=== PATIENT | female | born 1950 | race Hispanic/Latino ===

== ENCOUNTER 2019-07-09 10:54 | Observation (INO) | payer OTHER ==
[~2019-07-09] VITALS: Ht 162.6 cm; Wt 92.5 kg
[2019-07-09] MEDS ORDERED: CLONIDINE HCL0.1 MG PO (11:04)
[2019-07-09] MEDS ORDERED: FENOFIBRATE145 MG PO (11:05)
[2019-07-09] MEDS ORDERED: ASPIR 8181 MG PO (11:05)
[2019-07-09] MEDS ORDERED: LASIX40 MG PO (11:06)
[2019-07-09] MEDS ORDERED: ATIVAN1 MG PO (11:07)
[2019-07-09] MEDS ORDERED: LOSARTAN POTAS100 MG PO (11:07)
[2019-07-09] MEDS ORDERED: METOPROLOL SUC200 MG PO (11:08)
[2019-07-09] MEDS ORDERED: MECLIZINE HCL12.5 MG PO (11:08)
[2019-07-09] MEDS ORDERED: SERTRALINE HCL100 MG PO (11:09)
[2019-07-09] MEDS ORDERED: OMEPRAZOLE40 MG PO (11:09)
[2019-07-09] MEDS ORDERED: AMLODIPINE BESYL5 MG PO (11:09)
[2019-07-09] MEDS ORDERED: ZYRTEC10 MG PO (11:10)
--- NOTE | 2019-07-09 11:10 | NUR ---
PATIENTBP 194/89. SHE DID NOT TAKE HER BP MEDS. OVERDUE BY 2 HRS GAVE HER SOME WATER. SHE TOOK HER SCHEDULED MEDS LOSARTAN 100 MG CLONIDINE 0.1 MG METOPROLOL 200 MG
[2019-07-09] MEDS ORDERED: BENZONATATE100 MG PO (11:20)
[2019-07-09 11:47] LABS: BASOPHILS % 0.3 % (0.0-1.0); EOSINOPHILS # (AUTO) 0.2 (0.0-0.4); EOSINOPHILS % 1.9 % (0.0-6.0); HEMATOCRIT 42.3 % (34.2-44.1); HEMOGLOBIN 14.2 g/dL (12.0-16.0); LYMPHOCYTES # (AUTO) 1.4 (1.0-3.2); LYMPHOCYTES % 17.8 % (18.0-39.1); MEAN CORPUSCULAR HEMOGLOBIN 29.5 pg (28-32); MEAN CORPUSCULAR HGB CONC 33.6 g/dL (31-35); MEAN CORPUSCULAR VOLUME 87.9 fL (81-99); MONOCYTES # (AUTO) 0.8 (0.2-0.8); MONOCYTES % 9.7 % (4.4-11.3); NEUTROPHILS # (AUTO) 5.5 (2.1-6.9); PLATELET COUNT 236 x10e3/uL (140-360); RED BLOOD COUNT 4.81 x10e6/uL (3.6-5.1); RED CELL DISTRIBUTION WIDTH 14.1 % (11.7-14.4)
[2019-07-09 11:56] LABS: INR 0.95; PROTHROMBIN TIME 13.2 seconds (11.9-14.5)
[2019-07-09 11:57] LABS: PARTIAL THROMBOPLASTIN TIME 29.1 seconds (23.8-35.5)
[2019-07-09 12:04] LABS: ALBUMIN 4.3 g/dL (3.5-5.0); ALBUMIN/GLOBULIN RATIO 1.4 (0.8-2.0); ANION GAP 16.9 mmol/L (8-16); CALCIUM 10.3 mg/dL (8.4-10.2); CREATININE, SERUM 0.98 mg/dL (0.57-1.11); POTASSIUM 3.9 mmol/L (3.5-5.1)
[2019-07-09 12:10] LABS: CREATINE KINASE MB 5.9 ng/mL (0-5.0)
[2019-07-09 12:13] LABS: BILIRUBIN,URINE SMALL (NEGATIVE); KETONES,URINE NEGATIVE (NEGATIVE); LEUKOCYTE ESTERASE ,URINE NEGATIVE (NEGATIVE); NITRITE,URINE NEGATIVE (NEGATIVE); PROTEIN,URINE DIPSTICK TRACE (NEGATIVE); URINE UROBILINOGEN 0.2 mg/dL (0.2 - 1)
[2019-07-09 12:17] LABS: CLARITY,URINE HAZY (CLEAR); COLOR,URINE YELLOW (YELLOW)
[2019-07-09 12:26] LABS: BACTERIA,URINE FEW /HPF; EPITHELIAL CELLS,URINE FEW /LPF; RBC,URINE 0-5 /HPF (0-5); WBC,URINE (MAN) 0-5 /HPF (0-5)
[2019-07-09 12:27] LABS: AMORPHOUS SEDIMENT,URINE FEW (FEW)
--- NOTE | 2019-07-09 12:27 | Diagnostic Imaging Report ---
Exam: Head CT without contrast History: Dizziness Comparison studies: None Technique: Axial images were obtained from the skull base to the vertex. Coronal and sagittal images reconstructed from the axial data. Dose modulation, iterative reconstruction, and/or weight based adjustment of the mA/kV was utilized to reduce the radiation dose to as low as reasonably achievable. Radiation dose: Total DLP: 1036 mGy*cm. Estimated effective dose: DLP x 0.015 Intravenous contrast: None Findings: Scalp: No abnormalities. Bones: No fractures, blastic or lytic lesions. Brain sulci: Mildly prominent. Ventricles: Moderate compensatory dilatation. No hydrocephalus. Extra-axial spaces: No masses, no fluid collection. Parenchyma: No mass, acute hemorrhage or acute or chronic cortical insults. Small chronic lacunar infarcts in the bilateral putamina and in the left subinsular white matter. Age-indeterminate lacunar infarct present in the left thalamus. Ill-defined confluent hypodensities in the supratentorial white matter are nonspecific but are most compatible with chronic microvascular ischemic changes. Sellar/suprasellar region: No abnormalities. Craniocervical junction: Patent foramen magnum. No Chiari one malformation. Incidental findings: Bilateral lens replacements for previous cataract surgery. Calcified atherosclerosis in the carotid siphons and intradural vertebral arteries. IMPRESSION: 1. No mass, acute hemorrhage or acute cortical infarct. 2. Small age-indeterminate left thalamic lacunar infarct. 3. Moderate chronic microvascular ischemic changes with small chronic lacunar infarcts as described. 4. Mild to moderate generalized parenchymal volume loss. Signed by: Dr. Osbaldo Oscar M.D. on 07/09/2019 12:24 PM
--- NOTE | 2019-07-09 12:58 | Diagnostic Imaging Report ---
EXAMINATION: CHEST SINGLE (PORTABLE) INDICATION: ^dizziness ^[id number] ^1200 ^Y COMPARISON: None FINDINGS: AP view TUBES and LINES: None. LUNGS: Lungs are well inflated. There is no evidence of pneumonia or pulmonary edema. PLEURA: No pleural effusion or pneumothorax. HEART AND MEDIASTINUM: The cardiomediastinal silhouette is unremarkable. BONES AND SOFT TISSUES: No acute osseous lesion. Soft tissues are unremarkable. UPPER ABDOMEN: No free air under the diaphragm. IMPRESSION: No acute thoracic abnormality. Signed by: Dr. Rio Mcleod MD on 07/09/2019 12:54 PM
[2019-07-09] MEDS ORDERED: ONDANSETRON HCL INJ 2MG/ML 2ML 2 MG/ML VIAL IV PRN (13:00)
--- OUTSIDE RECORDS SUMMARY | 2019-07-09 13:23 | XMS REPORT ---
Author Author [facility] Address Unknown Phone Unavailable Care Team Providers Care Sensory Scientist Name Role Phone Florinda CABRAL Unavailable Unavailable Problems This patient has no known problems. Allergies, Adverse Reactions, Alerts This patient has no known allergies or adverse reactions. Medications This patient has no known medications. Results Test Description Test Time Test Comments Text Results Atomic Results Result Comments CHEST SINGLE (PORTABLE) 2019-07-09 12:54:00 [place] [address] Patient Name: TYSON DUNBAR MR #: [id number] : 1950 Age/Sex: 69/F Req #: [id number] Adm Physician: Ordered by: ELVIRA ALMAZAN KILN LOADER Report #: [id number] Location: ER Room/Bed: Procedure: [id number] DX/CHEST SINGLE (PORTABLE) Exam Date: 07/09/19 Exam Time: 1200 REPORT STATUS: Signed EXAMINATION: CHEST SINGLE (PORTABLE) INDICATION: dizziness [id number] 1200 Y COMPARISON: None FINDINGS: AP view TUBES and LINES: None. LUNGS: Lungs are well inflated. There is no evidence of pneumonia or pulmonary edema. PLEURA: No pleural effusion or pneumothorax. HEART AND MEDIASTINUM: The cardiomediastinal silhouette is unremarkable. BONES AND SOFT TISSUES: No acute osseous lesion. Soft tissues are unremarkable. UPPER ABDOMEN: No free air under the diaphragm. IMPRESSION: No acute thoracic abnormality. Signed by: Dr. Rio Car MD on 07/09/2019 12:54 PM Dictated By: RIO CAR MD 1254 Transcribed By: ARTEMIO on 07/09/19 1254 COPY TO: ELVIRA ALMAZAN NP CT BRAIN WO 2019-07-09 12:16:00 [place] [address] Patient Name: TYSON DUNBAR MR #: [id number] : 1950 Age/Sex: 69/F Req #: [id number] Adm Physician: Ordered by: ELVIRA ALMAZAN NP Report #: [id number] Location: ER Room/Bed: Procedure: [id number] CT/CT BRAIN WO Exam Date: 07/09/19 Exam Time: 1200 REPORT STATUS: Signed Exam: Head CT without contrast History: Dizziness Comparison studies: None Technique: Axial images were obtained from the skull base to the vertex. Coronal and sagittal images reconstructed from the axial data. Dose modulation, iterative reconstruction, and/or weight based adjustment of the mA/kV was utilized to reduce the radiation dose to as low as reasonably achievable. Radiation dose: Total DLP: 1036 mGy*cm. Estimated effective dose: DLP x 0.015 Intravenous contrast: None Findings: Scalp: No abnormalities. Bones: No fractures, blastic or lytic lesions. Brain sulci: Mildly prominent. Ventricles: Moderate compensatory dilatation. No hydrocephalus. Extra-axial spaces: No masses, no fluid collection. Parenchyma: No mass, acute hemorrhage or acute or chronic cortical insults. Small chronic lacunar infarcts in the bilateral putamina and in the left subinsular white matter. Age-indeterminate lacunar infarct present in the left thalamus. Ill-defined confluent hypodensities in the supratentorial white matter are nonspecific but are most compatible with chronic microvascular ischemic changes. Sellar/suprasellar region: No abnormalities. Craniocervical junction: Patent foramen magnum. No Chiari one malformation. Incidental findings: Bilateral lens replacements for previous cataract surgery. Calcified atherosclerosis in the carotid siphons and intradural vertebral arteries. IMPRESSION: 1. No mass, acute hemorrhage or acute cortical infarct. 2. Small age-indeterminate left thalamic lacunar infarct. 3. Moderate chronic microvascular ischemic changes with small chronic lacunar infarcts as described. 4. Mild to moderate generalized parenchymal volume loss. Signed by: Dr. Lisha Oscar M.D. on 07/09/2019 12:24 PM Dictated By: LISHA OSCAR MD 1224 Transcribed By: ARTEMIO on 07/09/19 1224 COPY TO: ELVIRA ALMAZAN NP
[2019-07-09] MEDS: FAMOTIDINE 20 MG/2 ML VIAL IV SCH (13:35)
[2019-07-09 14:09] VITALS: BP 188/96
--- NOTE | 2019-07-09 14:22 | NUR ---
Patient alert and responsive, received from ER with c/o dizziness that started 2 weeks ago but PMH significant for Vertigo, HTN, Depression and Anxiety, also with surgical history, skin is intact and denies chest pains at this moment. Assisted from stretcher to bed in the room, noted to close eyes at times, agrees to having occasional spinning sensation, call light within reach and educated to call for assistance when needed. IV line in place, BP elevated but no orders in record to treat, will call attending, Dr. Doran also consulted and will call her for notification.
--- NOTE | 2019-07-09 14:28 | NUR ---
Called and left message with Dr. Doran regarding consult
--- NOTE | 2019-07-09 14:31 | NUR ---
Call to Dr. Baker and left message regarding elevated BP and to see if home meds can be restarted. Waiting for call back
--- NOTE | 2019-07-09 16:30 | NUR ---
Second call to Dr. Baker and asked if patient should receive anything PRN for elevated BP of 210/90 and declined, wanted home meds resumed instead and that has been entered.
[2019-07-09 16:58] VITALS: BP 210/90
[2019-07-09] MEDS: CLONIDINE HCL 0.1 MG TAB PO SCH (17:50)
--- NOTE | 2019-07-09 19:00 | NUR ---
RECEIVED PATIENT IN BEDSIDE REPORT. PATIENT RESTING IN BED AT THIS TIME, STATED FAMILY MEMBERS JUST HELPED HER TO THE RESTROOM AND BACK TO BED. NO DIZZINESS OR PAIN REPORTED AFTER MOVEMENT. NO S&S OF DISTRESS NOTED. WILL CONTINUE TO MONITOR, ESPECIALLY BP. BED LOCKED IN LOWEST POSITION, SIDE RAILS UPX2, CALL LIGHT IN REACH.
--- NOTE | 2019-07-09 19:02 | NUR ---
Report given to on coming nurse, rounds completed and patient is stable.
[2019-07-09] MEDS: SERTRALINE HCL 100 MG TAB PO SCH (19:54)
[2019-07-09 19:55] LABS: CREATINE KINASE MB 5.4 ng/mL (0-5.0)
--- NOTE | 2019-07-09 19:55 | NUR ---
PATIENT'S BP NOTED TO BE 92/46. PATIENT ASSESSED, ASYMPTOMATIC, NO LIGHTHEADEDNESS OR DIZZINESS REPORTED. WILL MONITOR BP CLOSELY. REMINDED PATIENT TO CALL BEFORE GETTING OUT OF BED SO STAFF CAN ASSIST AND ENSURE SAFETY. BED ALARM ON AND ACTIVE. REMINDED PATIENT HOW TO CALL FOR ASSISTANCE, VERBALIZED UNDERSTANDING.
[2019-07-09 19:58] VITALS: BP 92/46
[2019-07-09 20:25] VITALS: BP 92/46
[2019-07-10] VITALS (8 sets, daily range): BP systolic 90–194; BP diastolic 45–78
[2019-07-10] MEDS: FAMOTIDINE 20 MG/2 ML VIAL IV SCH (00:53)
--- NOTE | 2019-07-10 02:35 | NUR ---
LAB CALLED AT THIS TIME, STATED MACHINE FOR CARDIAC MARKERS HAS MALFUNCTIONED, AND NEED A NEW TUBE FOR TROPONIN. BLOOD DRAWN AT 0045. WILL REDRAW.
[2019-07-10 03:50] LABS: CREATINE KINASE 80 IU/L (29-168)
[2019-07-10 04:53] LABS: BASOPHILS % 0.6 % (0.0-1.0); EOSINOPHILS # (AUTO) 0.3 (0.0-0.4); EOSINOPHILS % 4.8 % (0.0-6.0); HEMATOCRIT 38.3 % (34.2-44.1); HEMOGLOBIN 12.9 g/dL (12.0-16.0); LYMPHOCYTES # (AUTO) 1.8 (1.0-3.2); LYMPHOCYTES % 25.9 % (18.0-39.1); MEAN CORPUSCULAR HEMOGLOBIN 29.5 pg (28-32); MEAN CORPUSCULAR HGB CONC 33.7 g/dL (31-35); MEAN CORPUSCULAR VOLUME 87.4 fL (81-99); MONOCYTES # (AUTO) 0.6 (0.2-0.8); MONOCYTES % 8.9 % (4.4-11.3); NEUTROPHILS # (AUTO) 4.1 (2.1-6.9); NEUTROPHILS % 59.4 % (38.7-80.0); PLATELET COUNT 214 x10e3/uL (140-360); RED BLOOD COUNT 4.38 x10e6/uL (3.6-5.1)
[2019-07-10 05:08] LABS: ALANINE AMINOTRANSFERASE 21 IU/L (0-55); ALBUMIN 3.6 g/dL (3.5-5.0); ALBUMIN/GLOBULIN RATIO 1.2 (0.8-2.0); ALKALINE PHOSPHATASE 56 IU/L (40-150); ANION GAP 14.1 mmol/L (8-16); BLOOD UREA NITROGEN 44 mg/dL (7-26); BUN/CREATININE RATIO 44 (6-25); CALCIUM 10.4 mg/dL (8.4-10.2); CARBON DIOXIDE 23 mmol/L (22-29); CHLORIDE 107 mmol/L (98-107); CREATINE KINASE 77 IU/L (29-168); EST GLOMERULAR FILTRATION RATE 55 ML/MIN (60-); GLUCOSE 100 mg/dL (74-118); POTASSIUM 4.1 mmol/L (3.5-5.1); SODIUM 140 mmol/L (136-145)
[2019-07-10 05:36] LABS: CHOL/HDL RATIO 4.8 (3.0-3.6); CHOLESTEROL 160 MD/DL (0-199); HDL CHOLESTEROL 33 MG/DL (40-60); LDL CHOLESTEROL 75 MG/DL (60-130); TRIGLYCERIDES 258 MG/DL (0-149)
--- NOTE | 2019-07-10 07:24 | NUR ---
Received patient, a/ox3, no c/o pains, call light within reach and bed in low locked position, will monitor.
[2019-07-10] MEDS: PANTOPRAZOLE SOD 40 MG TABEC PO SCH (07:30)
[2019-07-10] MEDS: CLONIDINE HCL 0.1 MG TAB PO SCH (08:36)
[2019-07-10] MEDS: FUROSEMIDE 40 MG TAB PO SCH (08:36)
[2019-07-10] MEDS ORDERED: MECLIZINE HCL 12.5 MG TAB PO SCH (09:00)
[2019-07-10] MEDS ORDERED: FENOFIBRATE 200 MG TAB PO SCH (09:00)
[2019-07-10] MEDS ORDERED: LOSARTAN POTASSIUM 100 MG TAB PO SCH (09:00)
[2019-07-10] MEDS ORDERED: ASPIRIN 81 MG ENTERIC COATED PO SCH (09:00)
[2019-07-10] MEDS ORDERED: ASPIRIN 81 MG CHEW TAB PO SCH (09:00)
[2019-07-10] MEDS ORDERED: ACETAMINOPHEN 325 MG TAB PO PRN (09:30)
[2019-07-10] MEDS ORDERED: ONDANSETRON HCL 4 MG ORAL DISINTEGRATING TAB PO PRN (09:30)
--- NOTE | 2019-07-10 09:52 | History and Physical ---
The patient is placed under observation. Observation day July 10, 2019. CHIEF COMPLAINT: Dizziness improved with meclizine, although she will not take it once a day. Hypertensive urgency. HISTORY OF PRESENT ILLNESS: The patient is a 69-year-old female on clonidine, Toprol, and furosemide along with losartan, came in with fluctuating blood pressure. The patient also complained of dizziness for the past two weeks. On her home medication, we reviewed the patient only taking meclizine once a day and the patient stated when she took the meclizine, she felt better. The patient is otherwise stable. Her blood pressure is labile due to most likely the patient is taking clonidine. The patient is stable at this time. No chest pain. No shortness of breath. She is sitting in a chair. She is not dizzy. She only dizzy when she lays down or standing up. The patient is otherwise stable at this time. PAST MEDICAL HISTORY: Anxiety disorder, depression, hypertension, recently vertigo, overweight, dyslipidemia. Reflux. PAST SURGICAL HISTORY: The patient had a cholecystectomy, appendectomy, hysterectomy, tubal ligation, colon resection with colostomy and then subsequent reversal of the colostomy. SOCIAL HISTORY: The patient does not smoke or use alcohol. No regular drug. ALLERGIES: NO KNOWN ALLERGIES. HOME MEDICATION: Aspirin, Tessalon Perle, clonidine, fenofibrate, furosemide, lorazepam, losartan, meclizine, metoprolol, omeprazole, and sertraline. PHYSICAL EXAMINATION: VITAL SIGNS: Temperature is 98, blood pressure is 194/78, pulse rate 58, respirations 20. GENERAL: The patient is awake. She is alert, not in any distress. HEENT: Normocephalic, atraumatic. Anicteric. NECK: Supple grossly. PULMONARY: Clear. CARDIOVASCULAR: Regular rhythm. ABDOMEN: Soft and unremarkable, obese. EXTREMITIES: No cyanosis or edema. NEUROLOGIC: There is no focal deficit. Moving all extremities. No weakness. LABORATORY DATA: Sodium 140, potassium 4.1, chloride 107, bicarb 23, BUN 44, creatinine 1.0, glucose 100. Calcium level is 10.4. Cardiac enzymes negative. WBC is 7.7, hemoglobin 12.2, hematocrit 42.3, and platelet is 236. IMPRESSION: 1. Hypertensive urgency. 2. Most likely benign positional vertigo. 3. Fluctuating blood pressure, labile blood pressure secondary to medication regimen most likely. The patient is on clonidine, Toprol XR, furosemide, and losartan. PLAN: Adjust the patient's home medication. We will monitor the patient's blood pressure. MRI of the brain without contrast has been ordered. Carotid Doppler echocardiogram otherwise unremarkable. The patient will remain on observation once MRI is done. Blood pressure much improved. The patient should be able to go home within 24 to 48 hours. MD ANTONIO Carmichael/MEGAN /[id number]
[2019-07-10] MEDS ORDERED: VALSARTAN 160 MG TAB PO ONE (10:00)
[2019-07-10] MEDS ORDERED: NIFEDIPINE CR 30 MG TAB PO ONE (10:00)
[2019-07-10] MEDS ORDERED: MECLIZINE HCL 12.5 MG TAB PO PRN (10:30)
--- NOTE | 2019-07-10 10:42 | NUR ---
Rounds by Dr. Doran and evaluated patient, resumed Meclizine 25mg TID PRN and orders for CM for patient to participate in vestibular exercises. As from her standpoint, she states patient can be discharged.
--- NOTE | 2019-07-10 13:24 | Consultation ---
DATE OF CONSULTATION: 07/10/2019 Neurology Consult. HISTORY OF PRESENT ILLNESS: Ms. Price is a 69-year-old right-hand dominant woman with past medical history significant for hypertension, hyperlipidemia, and vertigo since April 2019, admitted to [facility] as an inpatient on July 09, 2019, for further evaluation and treatment of dizziness and hypertensive urgency/emergency. Neurology consultation is requested for further evaluation and treatment of dizziness. Ms. Price does endorse dizziness, which is further described as a vertiginous sensation. Sensation occurs intermittently, lasting for several seconds at a time. Then, sensation is exacerbated or triggered by quick movements. It improves with sitting still for several seconds. Ms. Price reports treatment with meclizine 12.5 mg by mouth daily, partially alleviates the symptoms as well. Associated with the vertigo or nausea without vomiting. Ms. Price does not report a visual field cut or other disturbance, dysarthria, aphasia, facial droop, hemiparesis, hemihypesthesia, poor balance, impairment of gait, or confusion associated with the above described symptoms. Ms. Price reports the intermittent vertiginous sensation began in April 2019, but significantly worsened approximately two weeks ago. Other than treatment with meclizine 12.5 mg by mouth daily, no other treatment has been recommended. Specifically, referral to a physical therapist for vestibular exercises has not been done. Ms. Price does report mild tinnitus affecting the left ear. She does not report pain/pressure, hearing loss, or discharge affecting either ear. REVIEW OF SYSTEMS: Nausea, vertigo. Otherwise, a 12-point review of systems is negative. PAST MEDICAL HISTORY: Hypertension, hyperlipidemia, gastroesophageal reflux disease, mixed depression/anxiety, and vertigo. PAST SURGICAL HISTORY: Total hysterectomy, cholecystectomy, appendectomy, colostomy with subsequent takedown. PAST HOSPITALIZATIONS: Surgeries/procedures as listed. FAMILY MEDICAL HISTORY: Both of the patient's parents are from throat cancer. Ms. Price has one sibling, a brother who is alive and has underlying psychiatric disorders. Otherwise, no significant family medical history is reported. SOCIAL HISTORY: Ms. Price is . She is retired. The patient does not report current or prior tobacco, alcohol, or recreational drug use. HOME MEDICATIONS: Aspirin 81 mg by mouth daily, benzonatate 100 mg by mouth 3 times daily, clonidine 0.1 mg by mouth 3 times daily, fenofibrate 200 mg by mouth daily, Lasix 40 mg by mouth daily, Ativan 1 mg by mouth daily, losartan 100 mg by mouth daily, meclizine 12.5 mg by mouth daily, metoprolol 200 mg by mouth daily, omeprazole 40 mg by mouth daily, and sertraline 100 mg by mouth at bedtime daily. HOSPITAL MEDICATIONS: Tylenol, aspirin, benzonatate, Lasix, meclizine, metoprolol, nifedipine, Zofran, Protonix, sertraline, and valsartan. ALLERGIES: NO KNOWN DRUG ALLERGIES. NO KNOWN FOOD ALLERGIES. NO KNOWN ALLERGIES TO LATEX. NO KNOWN ALLERGIES TO IODINE OR OTHER CONTRAST MATERIALS. PHYSICAL EXAMINATION: VITAL SIGNS: Height 64 inches, weight 204 pounds, BMI 35.0 kg/m2, blood pressure 194/78 mmHg, pulse 58 beats per minute, respiratory rate 20 breaths per minute, and oxygen saturation 96% on room air. GENERAL: The patient is awake and alert, does not appear distressed. Obese. HEENT: Normocephalic, atraumatic. Pupils are equal, round, and reactive to light. Moist mucous membranes. NECK: Supple. No appreciable thyromegaly. No appreciable carotid bruits. CARDIOVASCULAR: S1, S2, regular rate and rhythm. No murmurs, rubs, or gallops. RESPIRATORY: Clear to auscultation bilaterally. No wheezes, rhonchi, or rales. EXTREMITIES: The skin is warm and dry. No clubbing, cyanosis, or edema. The posterior tibial and dorsalis pedis pulses are 2+ and symmetric. SKIN: No rashes or lesions. Negative bilateral Viktoriya-Hallpike maneuvers. NEUROLOGIC: Memory/Attention: The patient is awake and alert, oriented to person, place, time, and situation. Cranial Nerves: Cranial nerve 1 - not tested. Cranial nerve 2, 3, 4, and 6 - pupils are equal and round, react briskly to light (from 4 mm to 2 mm). Extraocular movements intact. No nystagmus. Cranial nerve 5 - sensation to light touch and pinprick is intact in the bilateral V1 through V3 distributions. Strength in the temporalis and masseter muscles is within normal limits. Cranial nerve 7 - the face is symmetric as are all facial movements. Strength is within normal limits. Cranial nerve 8 - hearing is intact to finger rub bilaterally. Cranial nerve 9, 10 - the soft palate elevates equally and symmetrically. Cranial nerve 11 - normal strength of the bilateral sternocleidomastoid and trapezius muscles. Cranial nerve 12 - the tongue protrudes midline and moves symmetrically from [id number]. Strength: Bulk is normal. Strength is 5/5 in the bilateral deltoids, biceps, triceps, wrist flexors and extensors, finger flexors and extensors, intrinsic hand muscles, hip flexors, knee flexors and extensors, ankle dorsiflexion and plantar flexion, and intrinsic foot muscles. Tone is normal. DTRs: Deep tendon reflexes are 1+ and symmetric at the triceps, biceps, brachioradialis, patellas, and Achilles. Plantar responses are flexor bilaterally. Sensation: Sensation is intact to light touch and pinprick in both arms and both legs. Cerebellar: Yerdjz-hdhc-ekakzb and heel-rosales movements are intact without dysmetria or other impairment. Gait: Deferred. Speech: Spontaneous speech is normal without appreciable dysarthria or aphasia. Repetition is intact. Involuntary movements: None. Pronator Drift: None. LABORATORY DATA: The most recent comprehensive metabolic panel is significant for BUN of 44, estimated GFR 55, and calcium of 10.4. Cardiac enzymes are negative x4. B-natriuretic peptide 96.8. Total cholesterol 160, triglycerides 258, LDL cholesterol 75, HDL cholesterol 33. CBC with differential and platelets is unremarkable. The coagulation profile is within normal limits. The urinalysis collected on July 09, 2019, revealed hazy urine with a specific gravity of greater than 1.030, trace protein, and small bilirubin. DIAGNOSTIC STUDIES: Electrocardiogram 07/09/2019: Normal sinus rhythm at 84 beats per minute. Chest x-ray 07/09/2019: No acute thoracic abnormality. A CT of the brain without contrast 07/09/2019: On my review, there is no evidence of recent large territorial ischemia, hemorrhage, mass, or mass effect. There is a small, probably chronic lacunar infarct in the left thalamus. There is mild diffuse cerebral atrophy with compensatory dilatation of the ventricles, appropriate for the patient's age. Their findings compatible with [id number]-[id number]-[id number] chronic small-vessel ischemic disease. Echocardiogram 07/10/2019: Ejection fraction 60% to 65%. Concentric left ventricular hypertrophy. Left atrial enlargement. Mild aortic insufficiency, mitral regurgitation, and tricuspid regurgitation. Bilateral carotid artery ultrasound with Doppler 07/09/2019: There is atherosclerosis without hemodynamically significant stenosis at the right carotid bulb and left external carotid artery. Flow is antegrade in the bilateral vertebral arteries. ASSESSMENT AND PLAN: Ms. Price is a 69-year-old right-hand dominant woman with past medical history as detailed admitted to [facility] as an inpatient on July 09, 2019, with dizziness and hypertensive urgency/emergency. The patient's neurological examination is nonfocal. Bilateral Viktoriya-Hallpike maneuvers were negative. The patient's laboratory data and other diagnostic studies have been reviewed and are documented above. Ms. Price has benign paroxysmal positional vertigo, unspecified ear. RECOMMENDATIONS: 1. Treatment with meclizine will be continued, but the dose will be increased to 25 mg by mouth 3 times daily as needed for vertigo, nausea. 2. Case Management will be consulted to arrange physical therapy for vestibular exercises near the patient's home and [place], [place]. 3. In my opinion, the previously ordered MRI of the brain without contrast may be discontinued as those results will not add diagnostically to the patient's current evaluation. 4. Defer treatment of the remaining medical comorbidities to the primary and other services following the patient. 5. From a Neurological perspective, Ms. Price may be discharge to home. Thank you for this consultation. There are no other recommendations from the Neurology Service at this time. Please call again with any questions or concerns. TIME SPENT: 70 minutes. Adriana Doran MD CP/MEGAN /[id number] [place]
[2019-07-10] MEDS: BENZONATATE 100 MG CAP PO SCH ×2 (15:00→21:15)
[2019-07-10] MEDS: METOPROLOL TARTRATE 50 MG TAB PO SCH (17:42)
--- NOTE | 2019-07-10 19:00 | NUR ---
RECEIVED PATIENT IN BEDSIDE REPORT. PATIENT RESTING IN BED AT THIS TIME. NO PAIN REPORTED. NO DIZZINESS NOTED. REMINDED PATIENT TO CALL BEFORE ATTEMPTING TO GET OUT OF BED, PATIENT VERBALIZED UNDERSTANDING. BED LOCKED IN LOWEST POSITION, SIDE RAILS UPX2, CALL LIGHT IN REACH.
[2019-07-10] MEDS: SERTRALINE HCL 100 MG TAB PO SCH (21:15)
[2019-07-11] VITALS: BP 119/57
[2019-07-11 04:00] VITALS: BP 133/66
[2019-07-11] MEDS ORDERED: VALSARTAN 160 MG TAB PO SCH (06:00)
[2019-07-11] MEDS: METOPROLOL TARTRATE 50 MG TAB PO SCH (06:00)
[2019-07-11] MEDS ORDERED: NIFEDIPINE CR 30 MG TAB PO SCH (06:00)
--- NOTE | 2019-07-11 07:03 | NUR ---
Received patient lying in bed with eyes open. Respiration even and unlabored without SOB. Call light in reach.
[2019-07-11] MEDS: PANTOPRAZOLE SOD 40 MG TABEC PO SCH (07:56)
[2019-07-11] MEDS: FUROSEMIDE 40 MG TAB PO SCH ×2 (07:56→08:01)
[2019-07-11] MEDS: BENZONATATE 100 MG CAP PO SCH (07:57)
[2019-07-11 08:22] VITALS: BP 113/55
[2019-07-11 09:00] VITALS: BP 113/55
[2019-07-11] MEDS ORDERED: ASPIRIN 81 MG CHEW TAB PO SCH (09:00)
--- NOTE | 2019-07-11 11:07 | NUR ---
Patient is transported for MRI at this time.
--- NOTE | 2019-07-11 11:49 | NUR ---
Patient is transported back to room from MRI. Respiration even and unlabored without SOB. Call light in reach.
[2019-07-11 12:14] VITALS: BP 110/56
--- NOTE | 2019-07-11 12:31 | NUR ---
ORDER TO ARRANGE OP P.T. FOR VESTIBULAR EXCERCISES NEAR PT'S HOME IN [place] [facility] [place] [address], [place] [address] PHONE [phone] SPOKE WITH DAVID AND APPT MADE FOR PT FOR ThursdayJuly AT 11 AM FAXED CLINICAL TO [phone] CONFIRMATION REC'D GAVE PT NAME, ADDRESS AND PHONE NUMBER FOR [facility] GAVE PT MY BUSINESS CARD PT'S WILL BE TAKING HER TO HER APPT'S
--- NOTE | 2019-07-11 12:37 | Diagnostic Imaging Report ---
MRI BRAIN WO HISTORY: Dizziness COMPARISON: Head CT 07/09/2019 TECHNIQUE: Sagittal T2, axial T2, axial T1, axial T2/FLAIR, axial gradient echo (or susceptibility weighted), coronal T2/FLAIR, and axial diffusion weighted MR images of the brain were obtained without contrast. DISCUSSION: Scalp/bone marrow: Unremarkable. Brain sulci: Prominent. Ventricles: Compensatory dilatation. Extra-axial spaces: No masses or fluid collections. Parenchyma: Scattered T2/FLAIR hyperintense foci throughout the supratentorial white matter and lilly are likely chronic microvascular ischemic changes. Associated old bilateral striatocapsular lacunar infarcts are present. Otherwise, no mass, hemorrhage, or acute vascular insults. Vessels: Normal flow voids in major arteries and veins. Sellar/Suprasellar region: No abnormalities. Craniocervical junction: No abnormalities. Incidental findings: Bilateral ocular lens replacement. IMPRESSION: 1. No acute intracranial abnormalities. 2. Moderate supratentorial/pontine chronic microvascular ischemic change. 3. Mild generalized cerebral volume loss. Signed by: Dr. Jared Hernandes M.D. on 07/11/2019 12:33 PM
[2019-07-11] MEDS ORDERED: MECLIZINE HCL12.5 MG PO (14:06)
[2019-07-11] MEDS ORDERED: LASIX40 MG PO (14:06)
[2019-07-11] MEDS ORDERED: DIOVAN160 MG PO (14:07)
[2019-07-11] MEDS ORDERED: NIFEDIPINE ER30 M1 PO (14:07)
[2019-07-11] MEDS ORDERED: METOPROLOL TART50 MG PO (14:07)
--- NOTE | 2019-07-11 14:30 | NUR ---
Removed IV at this time from right AC. Pressure dressing applied
--- NOTE | 2019-07-11 14:35 | NUR ---
Patient discharged from facility to home. patient assisted out via wheelchair and staff. Reviewed all discharge paperwork, follow up appts and RX's reviewed and given. Out patient therapy was set up as well
== END 2019-07-11 14:33 | disposition home or self-care (01) ==
LOC: ER 10:54 → INTOOBSV 12:59 → ERHOLD 12:59 → MED/SURG 13:56
PROVIDERS: ADMIT Internal Medicine; ATTEND Internal Medicine
DX: I16.0 Hypertensive urgency (principal); H81.10 Benign paroxysmal vertigo, unspecified ear; Z79.899 Other long term (current) drug therapy; I10 Essential (primary) hypertension; E78.5 Hyperlipidemia, unspecified; K21.9 Gastro-esophageal reflux disease without esophagitis; F32.9 Major depressive disorder, single episode, unspecified; F41.9 Anxiety disorder, unspecified; I65.23 Occlusion and stenosis of bilateral carotid arteries; I34.0 Nonrheumatic mitral (valve) insufficiency; Z86.73 Personal history of transient ischemic attack (TIA), and cerebral infarction without residual deficits; I67.9 Cerebrovascular disease, unspecified
CPT/HCPCS: 36415 ×2; 70450; 70551; 71045; 80053 ×2; 80061; 81001; 82550 ×2; 82553 ×2; 83880; 84484 ×2; 85025 ×2; 85610; 85730; 93005; 93306; 93880; 99284; G0378 ×3; J8597; S0164 ×2

== ENCOUNTER → 2020-02-29 | Day surgery (SDC) | payer OTHER ==
[2020-02-24 11:44] LABS: BASOPHILS # (AUTO) 0.1 (0.0-0.1); BASOPHILS % 0.8 % (0.0-1.0); EOSINOPHILS # (AUTO) 0.3 (0.0-0.4); EOSINOPHILS % 3.3 % (0.0-6.0); HEMATOCRIT 34.3 % (34.2-44.1); LYMPHOCYTES # (AUTO) 1.3 (1.0-3.2); LYMPHOCYTES % 16.3 % (18.0-39.1); MEAN CORPUSCULAR HEMOGLOBIN 28.5 pg (28-32); MEAN CORPUSCULAR HGB CONC 32.1 g/dL (31-35); MEAN CORPUSCULAR VOLUME 88.9 fL (81-99); MONOCYTES # (AUTO) 0.6 (0.2-0.8); MONOCYTES % 7.4 % (4.4-11.3); NEUTROPHILS # (AUTO) 5.6 (2.1-6.9); NEUTROPHILS % 71.7 % (38.7-80.0); PLATELET COUNT 315 x10e3/uL (140-360); RED BLOOD COUNT 3.86 x10e6/uL (3.6-5.1); RED CELL DISTRIBUTION WIDTH 14.5 % (11.7-14.4)
[2020-02-24 12:04] LABS: BLOOD UREA NITROGEN 17 mg/dL (7-26); BUN/CREATININE RATIO 24 (6-25); CARBON DIOXIDE 24 mmol/L (22-29); CHLORIDE 111 mmol/L (98-107); CREATININE, SERUM 0.72 mg/dL (0.57-1.11); EST GLOMERULAR FILTRATION RATE > 60 ML/MIN (60-); GLUCOSE 94 mg/dL (74-118); SODIUM 145 mmol/L (136-145)
--- NOTE | 2020-02-24 12:33 | Diagnostic Imaging Report ---
EXAMINATION: CHEST 2 VIEWS INDICATION: Pre-operative COMPARISON: None FINDINGS: LINES/TUBES:None LUNGS:The lungs are well-inflated. No focal consolidation or pulmonary edema. PLEURA:No pleural effusion or pneumothorax. MEDIASTINUM:The cardiomediastinal silhouette appears normal in size and shape. Atherosclerotic calcifications of the thoracic aorta. BONES/SOFT TISSUES:No acute osseous injury. ABDOMEN:No free air under the diaphragm. IMPRESSION: No focal pneumonia or pulmonary edema. Signed by: Afshin Garza MD on 02/24/2020 12:29 PM
[~2020-02-29] MED LIST: ACETAMINOPHEN/CODEINE 300MG - 30MG TAB ONE; AMLODIPINE BESYL5 MG PO; ASPIR 8181 MG PO; ATIVAN1 MG PO; BENZONATATE100 MG PO; BUPIVACAINE HCL 0.5% INJ 30 ML VIAL INJ ONE; CEFAZOLIN SOD 1 GM/NS 50ML 50 ML IV ONE; CLONIDINE HCL0.1 MG PO; DEXAMETHASONE SOD PHOS INJ 4 MG/ML VIAL ONE; DIOVAN160 MG PO; ETOMIDATE 2 MG/ML 10 ML INJ IV ONE; FENOFIBRATE145 MG PO; FENTANYL CITRATE/PF 100MCG/2 ML INJ ONE; HYDRALAZINE HCL 20 MG/ML VIAL ONE; KETOROLAC TROMETHAMINE 30 MG/ML VIAL ONE; LASIX40 MG PO; LOSARTAN POTAS100 MG PO; MECLIZINE HCL12.5 MG PO; METOPROLOL SUC200 MG PO; METOPROLOL TART50 MG PO; NIFEDIPINE ER30 M1 PO; OMEPRAZOLE40 MG PO; ONDANSETRON HCL INJ 2MG/ML 2ML 2 MG/ML VIAL ONE; SERTRALINE HCL100 MG PO; SEVOFLURANE INHAL SOLN 250 ML PEN BTL ONE; TYLENOL WITH C1 EACH PO; ZYRTEC10 MG PO
[2020-02-29 14:15] VITALS: BP 168/71
--- NOTE | 2020-03-01 10:24 | Operative Report ---
DATE OF PROCEDURE: 02/29/2020 SURGEON: Osbaldo Mcgraw MD GUNNER MATE: Emilio Lin, certified PA. PREOPERATIVE DIAGNOSIS: Right ankle displaced bimalleolar fracture. POSTOPERATIVE DIAGNOSIS: Right ankle displaced bimalleolar fracture. PROCEDURE: Open reduction and internal fixation right ankle (medial and lateral). INDICATIONS: The patient is a frail 70-year-old lady, who injured her right ankle about three weeks ago. She presented to my clinic with a displaced bimalleolar fracture of her right ankle. The findings and options were discussed. We recommended open reduction with internal fixation. The risks and benefits were explained. The somewhat added challenges due to the subacute presentation were explained. All of her questions were answered. She stated she understood and wished to proceed. PROCEDURE IN DETAIL: The patient was brought to the operating room and placed under general anesthetic. Her right lower extremity was prepped and draped in a sterile manner. She received prophylactic antibiotics in the holding area. A preoperative time-out was performed. The extremity was exsanguinated and a proximal tourniquet was inflated to 300 mmHg. Initial attention was directed towards the distal fibula. An incision was made and the fracture site was carefully exposed. Minimal periosteal stripping was performed. A lobster claw reduction clamp was used to perform a near anatomic reduction. An eight hole one-third semitubular plate was gently contoured to fit the distal fibula. This was fixed onto the distal fibula with a combination of compression and locking screws. The bone was soft. I did not feel that an anterior to posterior lag screw would be of any benefit due to the compromised quality of the bone. Anatomic reduction was felt to be obtained. The wound was irrigated and loosely reapproximated with subcuticular Vicryl. Attention was directed towards the medial malleolus. This was now minimally displaced. A C-arm image intensifier was used to assist in placing a single partially-threaded cancellous screw from the tip of the medial malleolus into the proximal tibia. Reasonable fixation was obtained. No additional screws were felt to be necessary. Intraoperative x-rays confirmed anatomic reduction and good positioning of all the hardware. All the wounds were irrigated and closed with subcuticular Vicryl and ignacio. A sterile bandage and a well-padded splint were applied. She was extubated and transported to the recovery room in stable condition. There was no blood loss and all needle and sponge counts were correct. Osbaldo Mcgraw MD DR/MEGAN /[id number]
== END | disposition home or self-care (01) ==
LOC: OR 09:34 → MERGE 12:00
PROVIDERS: ATTEND Specialist
DX: S82.841A Displaced bimalleolar fracture of right lower leg, initial encounter for closed fracture (principal); I10 Essential (primary) hypertension; Z11.59 Encounter for screening for other viral diseases; Z01.810 Encounter for preprocedural cardiovascular examination; Z01.812 Encounter for preprocedural laboratory examination; Z01.818 Encounter for other preprocedural examination
CPT/HCPCS: 27814; 36415; 71046; 80048; 85025; 87635; 93005; C1713 ×5; J0360; J0690; J1100; J1885; J2405; J3010; 76000